=== PATIENT | female | born 1990 | race Caucasian/White ===

== ENCOUNTER 2017-05-09 22:52 | Emergency (ER) | payer OTHER ==
[~2017-05-09] VITALS: Ht 175.3 cm; Wt 112.0 kg
[2017-05-09 23:00] VITALS: BP 136/91; Ht 175.3 cm; Wt 112.0 kg
== END 2017-05-10 01:12 | disposition home or self-care (01) ==
LOC: ED 22:52
DX: J02.9 Acute pharyngitis, unspecified (principal)
CPT/HCPCS: J1885